=== PATIENT | female | born 1960 | race Caucasian/White ===

== ENCOUNTER 2020-04-06 10:17 | Inpatient (IN) | payer BC ==
--- NOTE | 2020-04-06 10:51 | BHS.RME ---
Substance Use & Tx History - Substance Use History Alcohol Substance amount: 1 liter rum Frequency of use: Daily Substance route: Oral Date of Last Use: 04/06/20 Nicotine Substance amount: 1 pack Frequency of use: Daily Substance route: Smoking Date of Last Use: 04/06/20 Physical/Psych/Mental Status - Behavior General Behavior: Increased activity (restlessness, agitation) Eye Contact: Normal - Cooperativeness Cooperativeness: Cooperative - Thinking Thought Processes: Tight, Logical, Goal Directed - Physical Health Problems Is patient presently having any pain?: No Does patient presently have any injuries (include location): No Does patient currently have a fever: No Is patient : No CIWA Nausea/Vomitin-Mild Nausea/No Vomiting Muscle Tremors: 4-Moderate,w/Arms Extend Anxiety: 4-Mod. Anxious/Guarded Agitation: 4-Moderately Restless Paroxysmal Sweats: 5 Orientation: 0-Oriented Tacttile Disturbances: 2-Mild Itch/Numbness/Burn Auditory Disturbances: 0-None Visual Disturbances: 1-Very Mild Sensitivity Headache: 2-Mild CIWA-Ar Total Score: 23
--- NOTE | 2020-04-06 10:56 | HP ---
CIWA Score Nausea/Vomitin-Mild Nausea/No Vomiting Muscle Tremors: 4-Moderate,w/Arms Extend Anxiety: 4-Mod. Anxious/Guarded Agitation: 4-Moderately Restless Paroxysmal Sweats: 5 Orientation: 0-Oriented Tacttile Disturbances: 2-Mild Itch/Numbness/Burn Auditory Disturbances: 0-None Visual Disturbances: 1-Very Mild Sensitivity Headache: 2-Mild CIWA-Ar Total Score: 23 - Admission Criteria OASAS Guidelines: Admission for Medically Managed Detox: Requires at least one of the followin. CIWA greater than 12 2. Seizures within the past 24 hours 3. Delirium tremens within the past 24 hours 4. Hallucinations within the past 24 hours 5. Acute intervention needed for co occurring medical disorder 6. Acute intervention needed for co occurring psychiatric disorder 7. Severe withdrawal that cannot be handled at a lower level of care (continued vomiting, continued diarrhea, abnormal vital signs) requiring intravenous medication and/or fluids 8. Admitting History and Physical - Admission Chief Complaint: "I want to stop drinking alcohol." History of Present Illness: 59 year old female with history of alcohol dependence with withdrawals seeking detox. She's never been to detox and has been drinking heavily for 2 years. 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 Substance Use & Tx History - Substance Use History Alcohol Substance amount: 1 liter rum Frequency of use: Daily Substance route: Oral Date of Last Use: 04/06/20 Endorses DT's upon withdrawing. Attempted to stop on her own but could not. Nicotine Substance amount: 1 pack Frequency of use: Daily Substance route: Smoking Date of Last Use: 04/06/20 PMH None except allergic rhinitis and seasonal allergic rhinitis Psurg: C/SX2 Psych: None Lives in [place] alone in own apartment No legal issues pending. 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 She meets criteria for detox as she is at high risk for complications from sudden withdrawals. HIRAM=0.071 CIWA= 23 Urine Tox: Negative for all else. Admission ROS S - HPI Exam Limitations: No Limitations - Ebola screening Have you traveled outside of the country in the last 21 days: No Have you had contact with anyone from an Ebola affected area: No Have you been sick,other than usual withdrawal symptoms: No Do you have a fever: No - Review of Systems Constitutional: Chills, Diaphoresis EENT: reports: No Symptoms Reported Respiratory: reports: No Symptoms reported Cardiac: reports: No Symptoms Reported GI: reports: No Symptoms Reported : reports: No Symptoms Reported Musculoskeletal: reports: No Symptoms Reported Integumentary: reports: No Symptoms Reported Neuro: reports: No Symptoms reported Endocrine: reports: No Symptoms Reported Hematology: reports: No Symptoms Reported Psychiatric: reports: Judgement Intact, Mood/Affect Appropiate, Orientated x3, Agitated, Anxious Other Systems: Reviewed and Negative Patient History - Patient Medical History Hx Anemia: No Hx Asthma: No Hx Chronic Obstructive Pulmonary Disease (COPD): No Hx Cancer: No Hx Cardiac Disorders: No Hx Congestive Heart Failure: No Hx Hypertension: No Hx Hypercholesterolemia: No Hx Pacemaker: No HX Cerebrovascular Accident: No Hx Seizures: No Hx Dementia: No Hx Diabetes: No Hx Gastrointestinal Disorders: No Hx Liver Disease: No Hx Genitourinary Disorders: No Hx Sexually Transmitted Disorders: No Hx Renal Disease (ESRD): No Hx Thyroid Disease: No Hx Human Immunodeficiency Virus (HIV): No Hx Hepatitis C: No Hx Depression: No Hx Suicide Attempt: No Hx Bipolar Disorder: No Hx Schizophrenia: No Other Medical History: Allergic seasonal and perennial rhinitis - Patient Surgical History Past Surgical History: Yes Hx Section: Yes (X2) - PPD History Previous Implant?: Yes Documented Results: Negative w/o proof Implanted On Prior R Admission?: No PPD to be Administered?: Yes - Reproductive History Patient is a Female of Child Bearing Age (11 -55 yrs old): No - Smoking Cessation Smoking history: Current every day smoker Have you smoked in the past 12 months: Yes Aproximately how many cigarettes per day: 20 Hx Chewing Tobacco Use: No Initiated information on smoking cessation: Yes 'Breaking Loose' booklet given: 04/06/20 - Substances abused Alcohol Substance route: Oral Frequency: Daily Amount used: 1 liter rum Age of first use: 58 Date of last use: 04/06/20 Admission Physical Exam BHS - Physical General Appearance: Yes: Moderate Distress, Tremorous, Irritable, Sweating, Anxious HEENTM: Yes: EOMI, Hearing grossly Normal, Normal ENT Inspection, Normocephalic, Normal Voice, CECILIA, Pharynx Normal, Tm's normal Respiratory: Yes: Chest Non-Tender, Lungs Clear, Normal Breath Sounds, No Respiratory Distress, No Accessory Muscle Use Neck: Yes: No masses,lesions,Nodules, Supple, Trachea in good position Breast: Yes: Within Normal Limits Cardiology: Yes: Regular Rhythm, Regular Rate, S1, S2 Abdominal: Yes: Normal Bowel Sounds, Non Tender, Flat, Soft Genitourinary: Yes: Within Normal Limits Back: Yes: Normal Inspection Musculoskeletal: Yes: full range of Motion, Gait Steady, Pelvis Stable Extremities: Yes: Normal Capillary Refill, Normal Inspection, Normal Range of Motion, Non-Tender Neurological: Yes: pie baker II-XII NML intact, Fully Oriented, Alert, Motor Strength 5/5, Normal Mood/Affect, Normal Response Integumentary: Yes: Normal Color, Dry, Warm Lymphatic: Yes: Within Normal Limits - Diagnostic (1) Alcohol dependence with withdrawal Current Visit: Yes Status: Acute (2) Nicotine dependence Current Visit: Yes Status: Acute (3) Rhinitis, allergic Current Visit: Yes Status: Acute (4) Alcohol intoxication delirium with moderate or severe use disorder Current Visit: Yes Status: Acute Cleared for Admission [facility] - Detox or Rehab [facility] Level of Care: Medically Managed Detox Regimen/Protocol: Librium Claeared for Rehab Admission: No Screened but not Admitted - Documentation of Visit Screened but not Admitted: No Breathalyzer - Breathalyzer Breathalyzer: 0.071 Vital Signs - Vital Signs Vital signs refused: No Temperature: 98.1 F Temperature source: Oral Pulse Rate: 92 Respiratory Rate: 12 Blood Pressure: 113/72 Blood Pressure position: Sitting - Height Height: 5 ft 2 in - Weight Weight: 114 lb Weight measurement method: Standing scale - BMI Body Mass Index (BMI): 20.8 - Bowel Function Bowel Movement: No Inpatient Rehab Admission - Rehab Decision to Admit Inpatient rehab admission?: No
[2020-04-06 11:08] VITALS: BMI 20.8
[2020-04-06] MEDS ORDERED: METHOCARBAMOL 500 MG TABLET PO PRN (11:10)
[2020-04-06] MEDS ORDERED: MENTHOL/PHENOL 1 EACH UD MM PRN (11:10)
[2020-04-06] MEDS ORDERED: MAGNESIUM CITRATE 300 ML BOTTLE PO PRN (11:10)
[2020-04-06] MEDS ORDERED: MAG HYDROX/AL HYDROX/SIMETH 30 ML UNIT-DOSE CUP PO PRN (11:10)
[2020-04-06] MEDS ORDERED: ACETAMINOPHEN 325 MG TABLET (FP) PO PRN ×2 (11:10)
[2020-04-06] MEDS ORDERED: chlordiazePOXIDE HCL 25 MG CAPSULE PO PRN (11:10)
[2020-04-06] MEDS ORDERED: BISMUTH SUBSALICYLATE 524 MG/30 ML UD PO PRN (11:10)
[2020-04-06] MEDS ORDERED: MAGNESIUM HYDROX 2400MG/30ML ORAL SUSPENSION 30 ML CUP PO PRN (11:10)
[2020-04-06] MEDS ORDERED: ONDANSETRON *ODT* 4 MG TABLET SL ONE (12:00)
[2020-04-06] MEDS: chlordiazePOXIDE HCL 25 MG CAPSULE PO SCH ×3 (12:28→22:17)
[2020-04-06] MEDS: NICOTINE 7 MG/24 HOURS TOPICAL PATCH TD SCH (12:32)
[2020-04-06] MEDS: PRENATAL VITAMINS W/ FOLIC ACID TABLET (FP) PO SCH (12:32)
--- NOTE | 2020-04-06 12:39 | EKG ---
Test Reason : Blood Pressure : / mmHG Vent. Rate : 082 BPM Atrial Rate : 082 BPM P-R Int : 156 ms QRS Dur : 084 ms QT Int : 392 ms P-R-T Axes : 072 043 047 degrees QTc Int : 457 ms NORMAL SINUS RHYTHM POSSIBLE LEFT ATRIAL ENLARGEMENT LEFT VENTRICULAR HYPERTROPHY ABNORMAL ECG NO PREVIOUS ECGS AVAILABLE Confirmed by MD Raul, Sylvester ([id number]) on 04/06/2020 12:39:36 PM Referred By: Confirmed By:Sylvester Carter MD
[2020-04-06] MEDS: hydrOXYzine PAMOATE 25 MG CAPSULE (FP) PO SCH ×3 (14:11→22:17)
[2020-04-06 15:01] LABS: HEMATOCRIT 40.3 % (32.4-45.2); HEMOGLOBIN 13.5 GM/dL (10.7-15.3); MCH 31.8 pg (25.7-33.7); MCHC 33.5 g/dl (32.0-36.0); MEAN CELL VOLUME 94.7 fl (80-96); MEAN PLT VOLUME 9.6 fl (7.5-11.1); PLATELET COUNT 203 K/MM3 (134-434); RBC 4.25 M/mm3 (3.60-5.2); WHITE BLOOD COUNT 7.2 K/mm3 (4.0-10.0)
[2020-04-06 15:19] LABS: ALBUMIN 3.8 g/dl (3.4-5.0); BILIRUBIN,TOTAL 0.5 mg/dL (0.2-1); BLOOD UREA NITROGEN 10.3 mg/dL (7-18); CALCIUM 8.7 mg/dL (8.5-10.1); CREATININE 0.5 mg/dL (0.55-1.3); POTASSIUM 4.1 mmol/L (3.5-5.1)
[2020-04-06] MEDS: THIAMINE HCL 100 MG TABLET (FP) PO SCH (22:17)
[2020-04-06] MEDS: MELATONIN 5 MG TABLETS PO SCH (22:17)
[2020-04-07] MEDS: hydrOXYzine PAMOATE 25 MG CAPSULE (FP) PO SCH ×5 (06:47→22:09)
[2020-04-07] MEDS: chlordiazePOXIDE HCL 25 MG CAPSULE PO SCH ×2 (06:48→10:14)
[2020-04-07] MEDS: PRENATAL VITAMINS W/ FOLIC ACID TABLET (FP) PO SCH (10:15)
[2020-04-07] MEDS: NICOTINE 7 MG/24 HOURS TOPICAL PATCH TD SCH (10:15)
--- NOTE | 2020-04-07 12:27 | PN ---
[facility] CIWA - CIWA Score Nausea/Vomitin-No Nausea/No Vomiting Muscle Tremors: 2 Anxiety: 3 Agitation: 2 Paroxysmal Sweats: 3 Orientation: 0-Oriented Tacttile Disturbances: 0-None Auditory Disturbances: 0-None Visual Disturbances: 0-None Headache: 2-Mild CIWA-Ar Total Score: 12 S Progress Note (SOAP) Subjective: c/o sweats, anxiety, shakes, headache, and interrupted sleep. Objective: 04/07/20 12:20 Vital Signs 04/07/20 04/07/20 06:13 08:33 Temperature 97.3 F L 98.8 F Pulse Rate 75 87 Respiratory 18 16 Rate Blood Pressure 160/98 157/98 O2 Sat by Pulse 96 Oximetry (%) Laboratory Last Values WBC 7.2 K/mm3 (4.0-10.0) 04/06/20 11:15 RBC 4.25 M/mm3 (3.60-5.2) 04/06/20 11:15 Hgb 13.5 GM/dL (10.7-15.3) 04/06/20 11:15 Hct 40.3 % (32.4-45.2) 04/06/20 11:15 MCV 94.7 fl (80-96) 04/06/20 11:15 MCH 31.8 pg (25.7-33.7) 04/06/20 11:15 MCHC 33.5 g/dl (32.0-36.0) 04/06/20 11:15 RDW 14.0 % (11.6-15.6) 04/06/20 11:15 Plt Count 203 K/MM3 (134-434) 04/06/20 11:15 MPV 9.6 fl (7.5-11.1) 04/06/20 11:15 Sodium 144 mmol/L (136-145) 04/06/20 11:15 Potassium 4.1 mmol/L (3.5-5.1) 04/06/20 11:15 Chloride 109 mmol/L (98-107) H 04/06/20 11:15 Carbon Dioxide 30 mmol/L (21-32) 04/06/20 11:15 Anion Gap 5 MMOL/L (8-16) L 04/06/20 11:15 BUN 10.3 mg/dL (7-18) 04/06/20 11:15 Creatinine 0.5 mg/dL (0.55-1.3) L 04/06/20 11:15 Est GFR (CKD-EPI)AfAm 124.52 04/06/20 11:15 Est GFR (CKD-EPI)NonAf 107.44 04/06/20 11:15 Random Glucose 102 mg/dL (74-106) 04/06/20 11:15 Calcium 8.7 mg/dL (8.5-10.1) 04/06/20 11:15 Total Bilirubin 0.5 mg/dL (0.2-1) 04/06/20 11:15 AST 67 U/L (15-37) H 04/06/20 11:15 ALT 106 U/L (13-61) H 04/06/20 11:15 Alkaline Phosphatase 112 U/L (45-117) 04/06/20 11:15 Total Protein 7.0 g/dl (6.4-8.2) 04/06/20 11:15 Albumin 3.8 g/dl (3.4-5.0) 04/06/20 11:15 Syphilis Serology Non-reactive (NONREACTIVE) 04/06/20 11:15 Labs noted with elevated AST/ALT. Assessment: 04/07/20 12:27 AOX3, in no acute respiratory distress. Full ROM, ambulating in the unit. Withdrawal symptoms. Elevated liver enzymes. Plan: change librium protocol to ativan protocol. Increase fluids for hydration.
[2020-04-07] MEDS ORDERED: LORazepam 1 MG TABLET PO PRN (12:30)
[2020-04-07] MEDS: IBUPROFEN 400 MG TABLET (FP) PO PRN (15:50)
[2020-04-07] MEDS ORDERED: LORazepam 2 MG TABLET PO SCH (17:00)
[2020-04-07] MEDS: LORazepam 1 MG TABLET PO SCH ×2 (17:34→22:09)
[2020-04-07] MEDS: NICOTINE POLACRILEX 2 MG GUM BUC PRN ×2 (18:40→22:09)
[2020-04-07] MEDS: MELATONIN 5 MG TABLETS PO SCH (22:09)
[2020-04-07] MEDS: THIAMINE HCL 100 MG TABLET (FP) PO SCH (22:09)
[2020-04-08] MEDS ORDERED: chlordiazePOXIDE HCL 25 MG CAPSULE PO SCH (05:00)
[2020-04-08] MEDS: LORazepam 1 MG TABLET PO SCH ×3 (05:46→20:03)
[2020-04-08] MEDS: hydrOXYzine PAMOATE 25 MG CAPSULE (FP) PO SCH ×4 (05:46→20:03)
[2020-04-08] MEDS: PRENATAL VITAMINS W/ FOLIC ACID TABLET (FP) PO SCH (10:11)
[2020-04-08] MEDS: IBUPROFEN 400 MG TABLET (FP) PO PRN (10:14)
[2020-04-08] MEDS: NICOTINE 7 MG/24 HOURS TOPICAL PATCH TD SCH (10:14)
--- NOTE | 2020-04-08 11:33 | PN ---
S CIWA - CIWA Score Nausea/Vomitin-No Nausea/No Vomiting Muscle Tremors: 2 Anxiety: 2 Agitation: 0-Normal Activity Paroxysmal Sweats: 2 Orientation: 0-Oriented Tacttile Disturbances: 0-None Auditory Disturbances: 0-None Visual Disturbances: 0-None Headache: 2-Mild CIWA-Ar Total Score: 8 BHS Progress Note (SOAP) Subjective: c/o sweats, anxiety, headache, and shakes. Objective: 04/08/20 11:30 Vital Signs 04/08/20 04/08/20 05:12 09:04 Temperature 96.8 F L 98.0 F Pulse Rate 73 85 Respiratory 18 16 Rate Blood Pressure 151/79 126/68 O2 Sat by Pulse 96 96 Oximetry (%) Assessment: 04/08/20 11:30 AOX3, in no acute respiratory distress. Full ROM, ambulating in the unit. Withdrawal symptoms. Plan: continue detox.
--- NOTE | 2020-04-08 16:58 | DS ---
[facility] Detox Discharge Summary Admission Date: 04/06/20 Discharge Date: 04/08/20 - History Additional Comments: Patient is leaving against medical advice. She did not give any reason for her abrupt decision to leave and does not want to discuss it. Risks and consequences of her action reinforced. Patient verbalized understanding. She is alert and oriented x 3, ambulates independently, in no acute distress and vital signs stable except HR at 105. Patient is advised to follow up with her physician for further evaluation. Patient has no known home medications. Discharge and instructions was done in 30 minutes. Pertinent Past History: Alcohol dependence Nicotine dependence Rhinitis - Physical Exam Results Vital Signs: Vital Signs Temperature 98.4 F 04/08/20 12:51 Pulse Rate 90 04/08/20 12:51 Respiratory Rate 16 04/08/20 12:51 Blood Pressure 117/59 L 04/08/20 12:51 O2 Sat by Pulse Oximetry (%) 99 04/08/20 12:51 Laboratory Last Values WBC 7.2 K/mm3 (4.0-10.0) 04/06/20 11:15 RBC 4.25 M/mm3 (3.60-5.2) 04/06/20 11:15 Hgb 13.5 GM/dL (10.7-15.3) 04/06/20 11:15 Hct 40.3 % (32.4-45.2) 04/06/20 11:15 MCV 94.7 fl (80-96) 04/06/20 11:15 MCH 31.8 pg (25.7-33.7) 04/06/20 11:15 MCHC 33.5 g/dl (32.0-36.0) 04/06/20 11:15 RDW 14.0 % (11.6-15.6) 04/06/20 11:15 Plt Count 203 K/MM3 (134-434) 04/06/20 11:15 MPV 9.6 fl (7.5-11.1) 04/06/20 11:15 Sodium 144 mmol/L (136-145) 04/06/20 11:15 Potassium 4.1 mmol/L (3.5-5.1) 04/06/20 11:15 Chloride 109 mmol/L (98-107) H 04/06/20 11:15 Carbon Dioxide 30 mmol/L (21-32) 04/06/20 11:15 Anion Gap 5 MMOL/L (8-16) L 04/06/20 11:15 BUN 10.3 mg/dL (7-18) 04/06/20 11:15 Creatinine 0.5 mg/dL (0.55-1.3) L 04/06/20 11:15 Est GFR (CKD-EPI)AfAm 124.52 04/06/20 11:15 Est GFR (CKD-EPI)NonAf 107.44 04/06/20 11:15 Random Glucose 102 mg/dL (74-106) 04/06/20 11:15 Calcium 8.7 mg/dL (8.5-10.1) 04/06/20 11:15 Total Bilirubin 0.5 mg/dL (0.2-1) 04/06/20 11:15 AST 67 U/L (15-37) H 04/06/20 11:15 ALT 106 U/L (13-61) H 04/06/20 11:15 Alkaline Phosphatase 112 U/L (45-117) 04/06/20 11:15 Total Protein 7.0 g/dl (6.4-8.2) 04/06/20 11:15 Albumin 3.8 g/dl (3.4-5.0) 04/06/20 11:15 Syphilis Serology Non-reactive (NONREACTIVE) 04/06/20 11:15 COVID-19 ([facility]) Not detected (Not Detected) 04/06/20 13:00 Lab. reviewed Pertinent Admission Physical Exam Findings: Alcohol withdrawal symptoms - Medication Discharge Medications: Ambulatory Orders NK [No Known Home Medication] 04/06/20 - Diagnosis (1) Alcohol dependence with withdrawal Status: Chronic (2) Nicotine dependence Status: Chronic Qualifiers: Nicotine product type: cigarettes Substance use status: uncomplicated Qualified Code(s): F17.210 - Nicotine dependence, cigarettes, uncomplicated (3) Rhinitis, allergic Status: Chronic Qualifiers: Allergic rhinitis seasonality: unspecified - AMA Did Patient Leave Against Medical Advice: Yes
[2020-04-08 17:04] VITALS: BP 132/83; PULSE 105; TEMP 97.3
[2020-04-09] MEDS ORDERED: chlordiazePOXIDE HCL 10 MG CAPSULE PO PRN
[2020-04-09] MEDS ORDERED: chlordiazePOXIDE HCL 10 MG CAPSULE PO SCH (05:00)
[2020-04-09] MEDS ORDERED: LORazepam 0.5 MG TABLET PO SCH (05:00)
[2020-04-10] MEDS ORDERED: LORazepam 0.5 MG TABLET PO PRN
[2020-04-10] MEDS ORDERED: chlordiazePOXIDE HCL 10 MG CAPSULE PO SCH (05:00)
[2020-04-10] MEDS ORDERED: LORazepam 0.5 MG TABLET PO ONE (05:00)
[2020-04-11] MEDS ORDERED: chlordiazePOXIDE HCL 10 MG CAPSULE PO ONE (05:00)
== END 2020-04-08 17:25 | disposition left against medical advice (07) | DRG 894 ==
LOC: YASAS 10:17 → Y6N 11:26
PROVIDERS: ADMIT Allergy & Immunology; ATTEND Allergy & Immunology
PROC: HZ2ZZZZ Detoxification Services for Substance Abuse Treatment (ICD-10-PCS; principal; 2020-04-06)
DX: F10.230 Alcohol dependence with withdrawal, uncomplicated (principal); F17.210 Nicotine dependence, cigarettes, uncomplicated; J30.9 Allergic rhinitis, unspecified; J30.2 Other seasonal allergic rhinitis; R74.0 Nonspecific elevation of levels of transaminase and lactic acid dehydrogenase [LDH]; Z88.2 Allergy status to sulfonamides
CPT/HCPCS: 36415; 80053; 85027; 86780; 93005; 93010; Q0162; U0003